=== PATIENT | female | born 1955 | race Caucasian/White ===

== ENCOUNTER 2021-11-11 20:18 | Emergency (ER) | payer MEDICARE ==
[~2021-11-11] VITALS: Ht 160 cm; Wt 68.0 kg
[2021-11-11 20:19] VITALS: BP 163/79
[2021-11-11] MEDS ORDERED: KETOROLAC 60 MG VIAL (30MG/ML) ONE (20:48)
[2021-11-11] MEDS ORDERED: KETOROLAC 60 MG VIAL (30MG/ML) IM ONE (21:00)
== END 2021-11-11 21:34 | disposition home or self-care (01) ==
LOC: EDH 20:18
DX: S52.592A Other fractures of lower end of left radius, initial encounter for closed fracture (principal); S52.615A Nondisplaced fracture of left ulna styloid process, initial encounter for closed fracture; E03.9 Hypothyroidism, unspecified; K21.9 Gastro-esophageal reflux disease without esophagitis; Z79.1 Long term (current) use of non-steroidal anti-inflammatories (NSAID); X58.XXXA Exposure to other specified factors, initial encounter; Z85.528 Personal history of other malignant neoplasm of kidney; Y93.89 Activity, other specified; Y92.89 Other specified places as the place of occurrence of the external cause; Y99.8 Other external cause status
CPT/HCPCS: 29125; 73110; 96372; 99283; J1885; 29105